=== PATIENT | male | born 1995 | race Caucasian/White ===

== ENCOUNTER 2018-10-26 00:47 | Emergency (ER) | payer OTHER, SELFPAY ==
[2018-10-26 03:06] LABS: Absolute Lymphocytes (CBC) 3.9 K/uL (0.7-4.9); Absolute Neutrophil 5.8 K/uL (1.8-8.0); Basophils % 0.7 % (0-1.3); Eosinophils % 1.2 % (0-4.4); Hematocrit 48.3 % (39.6-49.0); Lymphocytes % 35.6 % (15.3-44.8); MPV 8.4 fL (7.6-11.3); Monocytes % 8.8 % (3.3-12.3); RBC Red Blood Cell Count 5.46 M/uL (4.33-5.43)
[2018-10-26] MEDS ORDERED: FAMOTIDINE 20 MG/2 ML VIAL IV ONE (03:12)
[2018-10-26] MEDS ORDERED: FENTANYL CITR 100 MCG/2 ML ONE (03:12)
[2018-10-26] MEDS ORDERED: ONDANSETRON 4 MG/2 ML VIAL ONE (03:12)
[2018-10-26] MEDS ORDERED: NA CHLORIDE 0.9% 1,000 ML ONE (03:12)
[2018-10-26 03:19] LABS: Albumin 4.6 g/dL (3.4-5.0); Bilirubin Direct 0.1 mg/dL (0-0.2); Bilirubin Total 0.5 mg/dL (0.2-1.0); Potassium 3.9 mmol/L (3.5-5.1); Protein, Total 8.3 g/dL (6.4-8.2)
--- NOTE | 2018-10-26 04:43 | ER ---
Nurse's Notes [facility] Name: Edd Thomason Age: 23 yrs Sex: Male : 1995 Arrival Date: 10/26/2018 Time: 00:54 Bed 17 Private MD: Diagnosis: Abdominal tenderness Presentation: 10/26 00:57 Presenting complaint: Patient states: brigette been having abdominal pain for 3 days now, mg2 noticed black tarry stool today, been always skipping my breakfast because i work early in the morning. pain is relieved 2 hours after meal. also reported vomiting 5-6 times today. Transition of care: patient was not received from another setting of care. Onset of symptoms was October 23, 2018. Risk Assessment: Do you want to hurt yourself or someone else? Patient reports no desire to harm self or others. Initial Sepsis Screen: Does the patient meet any 2 criteria? No. Patient's initial sepsis screen is negative. Does the patient have a suspected source of infection? No. Patient's initial sepsis screen is negative. Care prior to arrival: None. 00:57 Method Of Arrival: Ambulatory mg2 00:57 Acuity: JUMA 3 mg2 Historical: - Allergies: 01:01 No Known Allergies; mg2 - Home Meds: 01:01 None [Active]; mg2 - PMHx: 01:01 None; mg2 - PSHx: 01:01 eye surgery; mg2 - Immunization history:: Flu vaccine is not up to date. - Social history:: Smoking status: Patient uses tobacco products, smokes one-half pack cigarettes per day, cigars, Patient uses alcohol, every other weekend. - Ebola Screening: : No symptoms or risks identified at this time. Screenin:01 Abuse screen: Denies threats or abuse. Denies injuries from another. Nutritional mg2 screening: No deficits noted. Tuberculosis screening: No symptoms or risk factors identified. Fall Risk None identified. Assessment: 02:10 General: Appears in no apparent distress. uncomfortable, Behavior is calm, cooperative, jb4 appropriate for age. Pain: Complains of pain in abdomen Pain does not radiate. Pain currently is 8 out of 10 on a pain scale. Quality of pain is described as stabbing, Pain began 2-3 days ago. Neuro: Level of Consciousness is awake, alert, obeys commands, Oriented to person, place, time, situation. Cardiovascular: Patient's skin is warm and dry. Respiratory: Airway is patent Respiratory effort is even, unlabored, Respiratory pattern is regular, symmetrical. GI: Abdomen is flat, non-distended, Bowel sounds present X 4 quads. Abd is soft and non tender X 4 quads. Abdomen is tender to palpation in umbilical area Reports lower abdominal pain, nausea, black stool. : No signs and/or symptoms were reported regarding the genitourinary system. EENT: No signs and/or symptoms were reported regarding the EENT system. Derm: Skin is intact, Skin is pink, warm \T\ dry. Musculoskeletal: Circulation, motion, and sensation intact. 03:00 Reassessment: Patient appears in no apparent distress at this time. Patient and/or jb4 family updated on plan of care and expected duration. Pain level reassessed. Patient is alert, oriented x 3, equal unlabored respirations, skin warm/dry/pink. 04:00 Reassessment: Patient appears in no apparent distress at this time. Patient and/or jb4 family updated on plan of care and expected duration. Pain level reassessed. Patient is alert, oriented x 3, equal unlabored respirations, skin warm/dry/pink. 05:00 Reassessment: Patient appears in no apparent distress at this time. Patient and/or jb4 family updated on plan of care and expected duration. Pain level reassessed. Patient is alert, oriented x 3, equal unlabored respirations, skin warm/dry/pink. Patient states feeling better. Vital Signs: 01:00 BP 140 / 88; Pulse 90; Resp 18; Temp 98(TE); Pulse Ox 100% on R/A; Weight 81.65 kg; mg2 Height 6 ft. 3 in. (190.50 cm); Pain 9/10; 02:10 BP 131 / 108; Pulse 91; Resp 16; Pulse Ox 100% on R/A; jb4 03:00 BP 140 / 89; Pulse 73; Resp 18; Pulse Ox 97% on R/A; jb4 04:00 BP 130 / 78; Pulse 56; Resp 16; Pulse Ox 98% on R/A; jb4 04:45 BP 117 / 83; Pulse 62; Resp 16; Pulse Ox 98% on R/A; jb4 01:00 Body Mass Index 22.50 (81.65 kg, 190.50 cm) mg2 ED Course: 00:54 Patient arrived in ED. ag3 01:00 Triage completed. mg2 01:01 Arm band placed on. mg2 01:56 Miguelito Correa, RN is Primary Nurse. jb4 02:10 Patient has correct armband on for positive identification. Placed in gown. Bed in low jb4 position. Call light in reach. Side rails up X 1. Pulse ox on. NIBP on. 02:10 Inserted saline lock: 20 gauge in right antecubital area, using aseptic technique. jb4 Blood collected. 02:35 Geoffrey Sherman MD is Attending Physician. [facility] 03:52 CT completed. Patient tolerated procedure well. Patient moved to CT via wheelchair. Patient moved back from CT. 03:56 CT Abd/Pelvis - W/Contrast In Process Unspecified. EDMS 05:03 No provider procedures requiring assistance completed. IV discontinued, intact, jb4 bleeding controlled. Administered Medications: 02:53 Drug: Pepcid 20 mg Route: IVP; Site: right antecubital; jb4 03:30 Follow up: Response: No adverse reaction jb4 02:56 Drug: Zofran 4 mg Route: IVP; Site: right antecubital; jb4 03:30 Follow up: Response: No adverse reaction; Nausea is decreased jb4 02:58 Drug: fentaNYL (PF) 25 mcg Route: IVP; Site: right antecubital; jb4 03:30 Follow up: Response: No adverse reaction; Pain is decreased jb4 02:59 Drug: NS 0.9% 1000 ml Route: IV; Rate: 1 bolus; Site: right antecubital; jb4 04:00 Follow up: Response: No adverse reaction; IV Status: Completed infusion jb4 Outcome: 04:42 Discharge ordered by . raymond 05:03 Discharged to home ambulatory. jb4 05:03 Condition: stable 05:03 Discharge instructions given to patient, Instructed on discharge instructions, follow up and referral plans. medication usage, Demonstrated understanding of instructions, follow-up care, medications, Prescriptions given X 3. 05:04 Patient left the ED. jb4 Signatures: Dispatcher [employer] EDWI Geoffrey Sherman MD MD cha Hagler, Ervin Miguelito Correa, RN RN jb4 Donnell Flannery RN RN [facility] D Pe[place]aloza ag3 Corrections: (The following items were deleted from the chart) 03:26 02:50 fentaNYL (PF) 25 mcg IVP in right antecubital jb4 jb4
--- NOTE | 2018-10-26 04:44 | EDPHYS ---
Physician Documentation [facility] Name: Edd Thomason Age: 23 yrs Sex: Male : 1995 Arrival Date: 10/26/2018 Time: 00:54 Bed 17 Private MD: ED Physician Geoffrey Sherman HPI: 10/26 02:46 This 23 yrs old Male presents to ER via Ambulatory with complaints of Back raymond Pain. 02:46 The patient presents with pain that is acute, with no known mechanism of injury. raymond Historical: - Allergies: 01:01 No Known Allergies; mg2 - Home Meds: 01: None [Active]; mg2 - PMHx: 01:01 None; mg2 - PSHx: 01:01 eye surgery; mg2 - Immunization history:: Flu vaccine is not up to date. - Social history:: Smoking status: Patient uses tobacco products, smokes one-half pack cigarettes per day, cigars, Patient uses alcohol, every other weekend. - Ebola Screening: : No symptoms or risks identified at this time. ROS: 02:47 Constitutional: Negative for fever, chills, and weight loss, Eyes: Negative for injury, raymond pain, redness, and discharge, ENT: Negative for injury, pain, and discharge, Neck: Negative for injury, pain, and swelling, Cardiovascular: Negative for chest pain, palpitations, and edema, Respiratory: Negative for shortness of breath, cough, wheezing, and pleuritic chest pain, Back: Negative for injury and pain, : Negative for injury, bleeding, discharge, and swelling, MS/Extremity: Negative for injury and deformity, Skin: Negative for injury, rash, and discoloration, Neuro: Negative for headache, weakness, numbness, tingling, and seizure. 02:47 Abdomen/GI: Positive for abdominal pain, of the suprapubic area, right lower quadrant and left lower quadrant. Exam: 02:47 Constitutional: This is a well developed, well nourished patient who is awake, alert, raymond and in no acute distress. Head/Face: Normocephalic, atraumatic. Eyes: Pupils equal round and reactive to light, extra-ocular motions intact. Lids and lashes normal. Conjunctiva and sclera are non-icteric and not injected. Cornea within normal limits. Periorbital areas with no swelling, redness, or edema. ENT: Nares patent. No nasal discharge, no septal abnormalities noted. Tympanic membranes are normal and external auditory canals are clear. Oropharynx with no redness, swelling, or masses, exudates, or evidence of obstruction, uvula midline. Mucous membranes moist. Neck: Trachea midline, no thyromegaly or masses palpated, and no cervical lymphadenopathy. Supple, full range of motion without nuchal rigidity, or vertebral point tenderness. No Meningismus. Chest/axilla: Normal chest wall appearance and motion. Nontender with no deformity. No lesions are appreciated. Cardiovascular: Regular rate and rhythm with a normal S1 and S2. No gallops, murmurs, or rubs. Normal PMI, no JVD. No pulse deficits. Respiratory: Lungs have equal breath sounds bilaterally, clear to auscultation and percussion. No rales, rhonchi or wheezes noted. No increased work of breathing, no retractions or nasal flaring. Abdomen/GI: Soft, non-tender, with normal bowel sounds. No distension or tympany. No guarding or rebound. No evidence of tenderness throughout. Back: No spinal tenderness. No costovertebral tenderness. Full range of motion. Male : Normal genitalia with no discharge or lesions. Skin: Warm, dry with normal turgor. Normal color with no rashes, no lesions, and no evidence of cellulitis. 03:31 Abdomen/GI: Rectal exam: rectal tone normal, Stool: normal, guaiac negative, raymond hemorrhoid(s), are not appreciated, mass, is not appreciated, swelling, is not appreciated, tenderness, is not appreciated. Vital Signs: 01:00 BP 140 / 88; Pulse 90; Resp 18; Temp 98(TE); Pulse Ox 100% on R/A; Weight 81.65 kg; mg2 Height 6 ft. 3 in. (190.50 cm); Pain 9/10; 02:10 BP 131 / 108; Pulse 91; Resp 16; Pulse Ox 100% on R/A; jb4 03:00 BP 140 / 89; Pulse 73; Resp 18; Pulse Ox 97% on R/A; jb4 04:00 BP 130 / 78; Pulse 56; Resp 16; Pulse Ox 98% on R/A; jb4 04:45 BP 117 / 83; Pulse 62; Resp 16; Pulse Ox 98% on R/A; jb4 01:00 Body Mass Index 22.50 (81.65 kg, 190.50 cm) mg2 MDM: 02:35 Patient medically screened. [facility] 02:58 Data reviewed: vital signs, nurses notes, lab test result(s), EKG, radiologic studies, [facility] MRI, . 10/26 02:33 Order name: Basic Metabolic Panel; Complete Time: 03:32 [facility] 10/26 02:33 Order name: CBC with Diff; Complete Time: 03:32 [facility] 10/26 02:33 Order name: Creatinine for Radiology; Complete Time: 03:32 [facility] 10/26 02:33 Order name: Hepatic Function; Complete Time: 03:32 [facility] 10/26 02:33 Order name: Lipase; Complete Time: 03:32 [facility] 10/26 02:46 Order name: CT Abd/Pelvis - W/Contrast [facility] 10/26 02:33 Order name: IV Saline Lock; Complete Time: 02:41 [facility] 10/26 02:33 Order name: Labs collected and sent; Complete Time: 02:41 [facility] Administered Medications: 02:53 Drug: Pepcid 20 mg Route: IVP; Site: right antecubital; 4 03:30 Follow up: Response: No adverse reaction [facility] 02:56 Drug: Zofran 4 mg Route: IVP; Site: right antecubital; 4 03:30 Follow up: Response: No adverse reaction; Nausea is decreased 4 02:58 Drug: fentaNYL (PF) 25 mcg Route: IVP; Site: right antecubital; jb4 03:30 Follow up: Response: No adverse reaction; Pain is decreased [facility] 02:59 Drug: NS 0.9% 1000 ml Route: IV; Rate: 1 bolus; Site: right antecubital; jb4 04:00 Follow up: Response: No adverse reaction; IV Status: Completed infusion 4 Disposition: 10/26/18 04:42 Discharged to Home. Impression: Abdominal tenderness. - Condition is Stable. - Discharge Instructions: Abdominal Pain, Adult, Nausea and Vomiting, Adult, Abdominal Pain, Adult, [id number]. - Prescriptions for Protonix 40 mg Oral Tablet, Delayed Release (E.C.) - take 1 tablet by ORAL route once daily; 20 tablet. Bentyl 20 mg Oral Tablet - take 1 tablet by ORAL route every 6 hours As needed; 20 tablet. Zofran 4 mg Oral Tablet - take 1 tablet by ORAL route every 12 hours As needed; 20 tablet. - Medication Reconciliation Form, Thank You Letter, Antibiotic Education, Prescription Opioid Use form. - Follow up: Private Physician; When: 2 - 3 days; Reason: Recheck today's complaints, Continuance of care, Re-evaluation by your physician. - Problem is new. - Symptoms have improved. Signatures: Dispatcher [employer] EDMT Geoffrey Sherman MD MD cha Bryson, James, RN RN jb4 Donnell Flannery RN RN mg2 Corrections: (The following items were deleted from the chart) 05:04 04:42 10/26/2018 04:42 Discharged to Home. Impression: Abdominal tenderness. Condition jb4 is Stable. Discharge Instructions: Abdominal Pain, Adult, Nausea and Vomiting, Adult, Abdominal Pain, Adult, [id number]. Prescriptions for Protonix 40 mg Oral Tablet, Delayed Release (E.C.) - take 1 tablet by ORAL route once daily; 20 tablet, Bentyl 20 mg Oral Tablet - take 1 tablet by ORAL route every 6 hours As needed; 20 tablet, Zofran 4 mg Oral Tablet - take 1 tablet by ORAL route every 12 hours As needed; 20 tablet. and Forms are Medication Reconciliation Form, Thank You Letter, Antibiotic Education, Prescription Opioid Use. Follow up: Private Physician; When: 2 - 3 days; Reason: Recheck today's complaints, Continuance of care, Re-evaluation by your physician. Problem is new. Symptoms have improved. raymond
--- NOTE | 2018-10-26 21:00 | RAD REPORT ---
EXAM DESCRIPTION: CT - Abdomen Pelvis W Contrast - 10/26/2018 4:42 am CLINICAL HISTORY: The patient is 23 years old and is Male; ABD PAIN COMPARISON: No relevant prior studies available. TECHNIQUE: Axial computed tomography images of the abdomen and pelvis with intravenous contrast. Sagittal and co colton reformatted images were created and reviewed. This CT exam was performed using one or more of t he following dose reduction techniques: Automated exposure control, adjustment of the mA and/or kV ac cording to patient size, and/or use of iterative reconstruction technique. FINDINGS: Lung bases: Unremarkable. No mass. No consolidation. ABDOMEN: Liver: Unremarkable. No mass. Gallbladder and bile ducts: No calcified stones. No ductal dilation. Pancreas: No ductal dilation. No mass. Spleen: Unremarkable. Adrenals: Unremarkable. No mass. Kidneys and ureters: Unremarkable. No solid mass. No hydronephrosis. Stomach and bowel: The stomach is minimally fluid-filled. The small bowel is normal in caliber. A mod erate amount of stool is present throughout the colon. There is no mucosal thickening or evidence of bowel obstruction. PELVIS: Appendix: The appendix is normal in caliber without surrounding inflammation. Bladder: The bladder is well distended. Reproductive: Unremarkable as visualized. ABDOMEN and PELVIS: Intraperitoneal space: Unremarkable. No free air. No significant fluid collection. Bones/joints: No acute fracture. Soft tissues: The soft tissues are normal. Vasculature: Unremarkable. No abdominal aortic aneurysm. Lymph nodes: Unremarkable. No enlarged lymph nodes. IMPRESSION: No acute findings on this contrasted CT of the abdomen and pelvis to explain the patient 's symptoms. Electronically signed by Neelima Matthews MD 10/26/2018 4:03 AM TRANSFORMER REPAIRER Due to temporary technical issues with the PACS/Fluency reporting system, reports are being signed by the in house radiologist as a courtesy to ensure prompt reporting. The interpreting radiologist is f ully responsible for the content of the report.
== END 2018-10-26 05:04 | disposition home or self-care (01) ==
LOC: ER 00:47
DX: R10.819 Abdominal tenderness, unspecified site (principal); F17.210 Nicotine dependence, cigarettes, uncomplicated
CPT/HCPCS: 36415; 74177; 80048; 80076; 83690; 85025; 96361; 96374; 96375; 99284; J2405; J3010; J7030; Q9967

== ENCOUNTER 2019-11-26 19:30 | Emergency (ER) | payer SELFPAY ==
--- NOTE | 2019-11-26 20:41 | RAD REPORT ---
EXAM DESCRIPTION: RAD - Ankle Right 3 View - 11/26/2019 8:29 pm CLINICAL HISTORY: PAIN COMPARISON: No comparisons FINDINGS: Trimalleolar fracture is seen with moderate surrounding soft tissues. No dislocation evide nt.
--- NOTE | 2019-11-26 20:49 | ER ---
Nurse's Notes [facility] Name: Edd Thomason Age: 24 yrs Sex: Male : 1995 Arrival Date: 11/26/2019 Time: 19:33 Bed 19 Private MD: Diagnosis: Fracture of lower leg, including ankle-right bi naleolur fracture Presentation: 11/25 19:51 Chief complaint: Patient states: R foot and ankle swelling and pain. Reports a fall on ca1 Tuesday night where pt twisted his R ankle and landed most of his weight on the R foot. Coronavirus screen: The patient has NOT traveled to a country currently being monitored by the [facility] within the last 14 days. The patient has NOT had contact with any known and/or suspected case of coronavirus. Ebola Screen: Patient negative for fever greater than or equal to 101.5 degrees Fahrenheit, and additional compatible Ebola Virus Disease symptoms Patient denies exposure to infectious person. Patient denies travel to an Ebola-affected area in the 21 days before illness onset. No symptoms or risks identified at this time. Initial Sepsis Screen: Does the patient meet any 2 criteria? No. Patient's initial sepsis screen is negative. Does the patient have a suspected source of infection? No. Patient's initial sepsis screen is negative. Risk Assessment: Do you want to hurt yourself or someone else? Patient reports no desire to harm self or others. Onset of symptoms was November 24, 2019. 19:51 Method Of Arrival: Wheelchair ca1 19:51 Acuity: JUMA 4 ca1 Triage Assessment: 19:55 General: Appears in no apparent distress. comfortable, Behavior is calm, cooperative, ca1 appropriate for age. Pain: Complains of pain in right ankle Pain currently is 0 out of 10 on a pain scale. at worst was 7 out of 10 on a pain scale. Pain began 2-3 days ago. Neuro: Level of Consciousness is awake, alert, obeys commands, Oriented to person, place, time, situation, Appropriate for age. Derm: Skin is intact, is healthy with good turgor, Skin is pink, warm \T\ dry. Musculoskeletal: Circulation, motion, and sensation intact. Capillary refill < 3 seconds, Range of motion: limited in right ankle Swelling present in right ankle. Injury Description: Bruise sustained to right barreto, anterior aspect of right ankle and dorsum of right foot is yellow, was sustained 2 days ago. Historical: - Allergies: 19:55 No Known Allergies; ca1 - Home Meds: 19:55 None [Active]; ca1 - PMHx: 19:55 None; ca1 - PSHx: 19:55 None; ca1 - Immunization history:: Adult Immunizations up to date, Flu vaccine is not up to date. - Social history:: Smoking status: Patient reports the use of cigarette tobacco products, denies chronic smoking, but will smoke occasionally. - Family history:: not pertinent. Screenin:57 Abuse screen: Denies threats or abuse. Denies injuries from another. Nutritional ca1 screening: No deficits noted. Tuberculosis screening: No symptoms or risk factors identified. Fall Risk Gait- Impaired (20 pts.). Total [place] Fall Scale indicates No Risk (0-24 pts). Assessment: 19:57 Reassessment: SEE TRIAGE ASSESSMENT. ca1 20:55 Reassessment: Patient appears in no apparent distress at this time. No changes from ca1 previously documented assessment. Patient and/or family updated on plan of care and expected duration. Pain level reassessed. Patient is alert, oriented x 3, equal unlabored respirations, skin warm/dry/pink. Vital Signs: 19:51 BP 150 / 88; Pulse 104; Resp 19 S; Pulse Ox 100% on R/A; ca1 20:55 BP 154 / 94; Pulse 96; Resp 17 S; Pulse Ox 100% on R/A; ca1 ED Course: 19:33 Patient arrived in ED. ag3 19:39 Lee Ann Patel MD is Attending Physician. ma2 19:41 Silvana Vizcarra, RENITA is Primary Nurse. ca1 19:54 Triage completed. ca1 19:55 Arm band placed on right wrist. ca1 19:57 Patient has correct armband on for positive identification. Bed in low position. Call ca1 light in reach. Side rails up X 1. Pulse ox on. NIBP on. Elevated right foot. 20:29 Ankle Right 3 View XRAY In Process Unspecified. EDMS 20:49 Derek Beach MD is Referral Physician. ma2 21:25 Crutch training done. Orthoglass splint: Posterior long leg splint applied on right dh4 leg. stirrup splint applied on right leg. 21:34 No provider procedures requiring assistance completed. Patient did not have IV access ca1 during this emergency room visit. Administered Medications: 21:18 Drug: Troy 10 mg-325 mg 1 tabs {Note: rass - 0.} Route: PO; ca1 21:25 Follow up: Response: Medication administered at discharge. ca1 Outcome: 20:48 Discharge ordered by . siri 21:34 Discharged to home ambulatory, with crutches, with significant other. ca1 21:34 Condition: stable 21:34 Discharge instructions given to patient, Instructed on discharge instructions, follow up and referral plans. no drinking with medication, no driving heavy equipment, medication usage, Demonstrated understanding of instructions, follow-up care, medications, Prescriptions given X 1. 21:35 Patient left the ED. ca1 Signatures: Dispatcher [employer] EDMS Lee Ann Patel MD MD ma2 Maria D Peñaloza 3 Silvana Vizcarra, RN RN ca1 Bishnu Yarbrough 4
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
[2019-11-26] MEDS ORDERED: HYDROCODONE/APAP 10/325 TAB ONE (21:23)
[2019-11-26 22:01] VITALS: O2SAT 100
[2019-11-26 22:04] VITALS: BP 154/94
== END 2019-11-26 21:35 | disposition home or self-care (01) ==
LOC: ER 19:30
DX: S82.851A Displaced trimalleolar fracture of right lower leg, initial encounter for closed fracture (principal); W19.XXXA Unspecified fall, initial encounter; Y93.89 Activity, other specified; Y92.9 Unspecified place or not applicable; Z72.0 Tobacco use
CPT/HCPCS: 99284

== ENCOUNTER 2022-07-16 11:05 | Emergency (ER) | payer SELFPAY ==
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
[2022-07-16 11:44] VITALS: BP 154/93; TEMP 98; O2SAT 100
== END 2022-07-16 11:40 | disposition home or self-care (01) ==
LOC: ER 11:05
DX: T20.50XA Corrosion of first degree of head, face, and neck, unspecified site, initial encounter (principal)
CPT/HCPCS: 99283